=== PATIENT | female | born 1985 | race Hispanic/Latino ===

== ENCOUNTER 2020-03-23 03:07 | Inpatient (IN) | payer OTHER ==
[2020-03-23] MEDS ORDERED: Ringers Lactate 1,000 ML IV PRN (03:12)
[2020-03-23] MEDS ORDERED: PROMETHAZINE INJ 25 MG/ML AMP IM PRN (03:12)
[2020-03-23] MEDS ORDERED: METHYLERGONOVINE 0.2MG/ML AMP IM PRN (03:12)
[2020-03-23] MEDS ORDERED: CARBOPROST TROME 250 MCG/ML IM PRN (03:12)
[2020-03-23] MEDS ORDERED: BUTORPHANOL 1 MG/ML INJ IV PRN (03:12)
[2020-03-23] MEDS ORDERED: DIPHENHYDRAMINE 25 MG TAB/CAP PO PRN (03:42)
[2020-03-23] MEDS ORDERED: BISACODYL 10 MG RECTAL SUPP RECT PRN (03:42)
[2020-03-23] MEDS ORDERED: Oxycodone HCl/Acetaminophen 1 TAB TAB PO PRN ×2 (03:42)
[2020-03-23] MEDS ORDERED: DOCUSATE NA/SENNA CONC 1 TAB PO PRN (03:42)
[2020-03-23] MEDS ORDERED: ACETAMINOPHEN 500 MG TAB PO PRN (03:42)
[2020-03-23] MEDS ORDERED: OXYTOCIN/LR 20 UNIT/1,000 ML BAG IV SCH ×2 (04:00)
[2020-03-23] MEDS ORDERED: Ringers Lactate 1,000 ML IV SCH (04:00)
[2020-03-23 04:09] LABS: Basophils % 0.7 % (0-1.3); Hematocrit 37.7 % (36.0-45.0); Lymphocytes % 23.5 % (15.3-44.8); RBC Red Blood Cell Count 3.94 M/uL (3.86-4.86)
--- NOTE | 2020-03-23 04:22 | PREOPHP ---
Date of Admission: 03/23/2020 History: A 35-year-old, 4, para 3, 38 weeks gestation, had been seen earlier at 38 weeks, no w is 38 weeks 1 day, came in initially for spotting, was observed for 2-3 hours then sent home. Nikki ent came back 9 cm and ready to deliver. Spontaneous rupture of membranes. Shortly after admission, spontaneous vaginal delivery of a 7-pound 14-ounce male infant, Apgars 9 and 9. Small first-degree laceration repaired with 2-0 chromic under local infiltration. Schultze delivery of the placenta, wh ich was inspected and noted to be intact and normal. Less than 300 mL blood loss. Patient tolerated all procedures well. Final Diagnoses: Term intrauterine 38 weeks 1 day. Spontaneous vaginal delivery. A 35-year-old female, 38 weeks 1 day. Family History: Noncontributory. Allergies: SHE HAS NO SIGNIFICANT ALLERGIES. BETA STREP NEGATIVE. RH POSITIVE, IMMUNE TO RUBELLA. Physical Examination: Physical exam is normal. HEENT: Clear. Pupils are equal, round, and reactive to light and accommodation. Conjunctivae well perfused. No oral, lingual, or buccal lesions. Chest and Lungs: Clear. Abdomen: Term. Patient in active labor, ready to deliver. 9 cm, vertex +2 station. RAMA/KEATON Voice ID: [id number]
[2020-03-23 05:15] VITALS: BMI 34.7
--- NOTE | 2020-03-23 08:43 | DS ---
35-year-old, 4, para 3, came in at 38 weeks and 1 day, 9 cm with the urge to push. Delivered rapidly of a 7-pound 14-ounce male infant, Apgars 9 and 9. Small first-degree laceration repaired w ith 2-0 chromic under local infiltration. Schultze delivery of the placenta, which was inspected, an d noted to be intact and normal. Less than 300 cc blood loss. Rh positive. Immune to Rubella. Neg ative beta strep screen. ; afebrile, ambulating and voiding. Lochia is normal. She will be dismissed tomorrow morning to report back to my office in 6 weeks for followup, to report any temp erature elevation of 100 degrees or greater, severe pain, heavy bleeding, or any other type of abnorm alities. She is taking Motrin for analgesia. Offered a Tdap immunization, which she did not have du ring the and was offered. Final Diagnosis: Term intrauterine , 38 weeks 1 day, vaginal delivery. Tdap offered. RAMA/KEATON Voice ID: [id number] Report ID: [id number]
[2020-03-23] MEDS ORDERED: PNEUMOCOCCAL VACCINE 0.5 ML IMVAC ONE (09:00)
[2020-03-23] MEDS: IBUPROFEN 200 MG TAB PO PRN (16:45)
[2020-03-24 01:31] LABS: RPR (Rapid Plasma Reagin) NON-REACT (NON-REACT)
[2020-03-24] MEDS: IBUPROFEN 200 MG TAB PO PRN (05:21)
[2020-03-24 07:27] VITALS: BP 123/76; TEMP 97.3
[2020-03-24] MEDS ORDERED: Tdap (Diph,Pertuss(Acell),Tet Vac) 0.5 ML SYR IMVAC ONE (08:18)
--- NOTE | 2020-03-24 09:04 | DS ---
35-year-old, 4, para 3. RAMA/KEATON Voice ID: [id number] Report ID: [id number]
--- NOTE | 2020-03-27 08:13 | OP ---
Surgeon: Kike Lawler MD A 35-year-old, 4, para 3, 38 weeks 1 day, came in, 9 cm with urge to push. Delivered rapidly of a 7 pounds 14 ounce male , Apgars 9 and 9. Small first-degree laceration repaired with 2-0 chromic under local infiltration. Schultze delivery of the placenta, inspected and noted to be inta ct and normal. Less than 300 mL blood loss. Rh positive, immune to Rubella. Negative beta strep sc reen. Tolerated all procedures well. Final Diagnoses: Term intrauterine , spontaneous labor, vaginal delivery. RAMA/KEATON Voice ID: [id number] Report ID: [id number]
[2020-03-28 04:21] LABS: HBsAG Nonreactive (Nonreactive)
== END 2020-03-24 09:55 | disposition home or self-care (01) | DRG 807 ==
LOC: 2ND-WC 03:07
PROVIDERS: ADMIT Specialist; ATTEND Specialist
PROC: 10E0XZZ Delivery of Products of Conception, External Approach (ICD-10-PCS; principal; 2020-03-23)
PROC: 0HQ9XZZ Repair Perineum Skin, External Approach (ICD-10-PCS; 2020-03-23)
DX: O70.0 First degree perineal laceration during delivery (principal); Z37.0 Single live birth; Z3A.38 38 weeks gestation of pregnancy
CPT/HCPCS: 36415; 85025; 86592; 87340; 90471; 90670; 90715

== ENCOUNTER 2022-09-15 14:40 | Emergency (ER) | payer OTHER ==
[2022-09-15 16:27] LABS: Urine Blood 3+ (Negative); Urine Glucose Negative (Negative); Urine Protein Negative (Negative)
[2022-09-15 16:41] LABS: Absolute Lymphocytes (CBC) 0.9 K/uL (0.7-4.9); Hematocrit 37.1 % (36.0-45.0); Lymphocytes % 11.5 % (15.3-44.8); MCV 91.5 fL (80-100); MPV 9.1 fL (7.6-11.3); RBC Red Blood Cell Count 4.06 M/uL (3.86-4.86)
[2022-09-15 16:42] LABS: Protime INR 0.99
[2022-09-15 16:46] LABS: Urine Bacteria None Seen /HPF (<20); Urine Mucus Slight /HPF (None Seen)
[2022-09-15] MEDS ORDERED: FENTANYL CITR 100 MCG/2 ML ONE (16:48)
[2022-09-15] MEDS ORDERED: NA CHLORIDE 0.9% 1,000 ML ONE (16:48)
[2022-09-15 16:56] LABS: Albumin 3.4 g/dL (3.4-5.0); Bilirubin Total 0.1 mg/dL (0.2-1.0); Potassium 3.9 mmol/L (3.5-5.1); Protein, Total 7.8 g/dL (6.4-8.2)
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
[2022-09-15 19:19] VITALS: TEMP 98.2; O2SAT 99
== END 2022-09-15 19:01 | disposition home or self-care (01) ==
LOC: ER 14:40
DX: M54.9 Dorsalgia, unspecified (principal); R07.9 Chest pain, unspecified; R10.30 Lower abdominal pain, unspecified; V49.40XA Driver injured in collision with unspecified motor vehicles in traffic accident, initial encounter
CPT/HCPCS: 96361; 85025; 36415; 85610; 83690; 80053; 70450; 72125; 71260; 74177; 96374; 99283; Q9967; J3010; J7030; 81003; 81015